=== PATIENT | male | born 1975 | race Caucasian/White ===

== ENCOUNTER 2016-08-02 16:19 | Emergency (ER) | payer OTHER ==
[~2016-08-02] VITALS: Ht 175.3 cm; Wt 118.2 kg
[2016-08-02 17:02] VITALS: BP 144/93; O2SAT 96
--- NOTE | 2016-08-02 17:47 | ED.REPORT ---
HPI-General Illness Date of Service Aug 02, 2016 ED Provider:Dr. Young Funez MD A 40 year old male presents to the ED complaining of sinus pain that began one week ago but became increasingly worse this morning. Associated symptoms include nausea, vomiting, fatigue, photophobia and nasal congestion. The pain is located in his left eye, upper dentition and forehead. He took Pseudomorphine with little relief. Patient had one previous incident of similar pain and nausea. He denies any previous facial or sinus surgeries. Nursing Notes Stated Complaint: CONGESTION, FACIAL PAIN, NAUSEA AND VOMITING Chief Complaint: ENT & Mouth Nursing Notes Reviewed: Yes Allergies: Coded Allergies: cephalexin (Verified Allergy, Severe, hives, 08/02/16) Scheduled Sulfamethoxazole/Trimeth 800-160 mg (Bactrim DS) 1 Each Tablet 1 TABLET PO BID General Time Seen by MD: 17:46 Chief Complaint Other (Facial Pain) Hx Obtained From: Patient Arrived By: Walk-in Sudden in Onset?: No Onset Occurred: 1 week ago Symptom Duration: Since onset Location: : Head Quality: Painful Radiation: : Does not radiate Severity: Current: Moderate Severity: Maximum: Moderate Associated with: Reports: Congestion, Nasal discharge, Nausea, Vomiting, Denies: Abdominal pain, Fever Pertinent Negative: Pt denies other symptoms Recent Healthcare: No recent doctor visit, No recent hospitalization Past Medical History Past Medical History None reported. Denies: Diabetes mellitus, Hypertension Past Surgical History None reported. Smoking History Never Smoker Social History Alcohol Use: Denies alcohol use Drug Use: Denies drug use Other Social History: Good social support, Local resident Ambulatory Status Independent Review of Systems Full Review of Systems Constitutional: Reports: Fatigue, Denies: Chills, Fever Ears / Nose / Throat: Reports: Nasal congestion, Sinus problem Respiratory: Denies: Shortness of breath Cardiovascular: Denies: Chest pain GI: Reports: Nausea, Vomiting, Denies: Abdominal pain Neurologic: Denies: Change LOC Complete sys rev & neg: except as marked. Physical Exam Vital Signs Vital Signs Date Time Temp Pulse Resp B/P Pulse Ox O2 Delivery O2 Flow Rate FiO2 08/02/16 17:02 36.6 101 144/93 96 Initial VS: Reviewed Neck: Supple, Non-tender, Full range of motion Extremities: Vascular intact, Neuro intact, No swelling, No tenderness Skin: Warm, Dry, No cyanosis Neurologic: Alert, Oriented, Nonfocal Psychiatric: Mood/affect normal, Behavior normal, Normal thought content General/Constitutional: Awake, Alert Head / Eyes: Atraumatic, Normocephalic, PERRL ENT: Atraumatic, Airway patent, Mucous membranes moist, Tympanic membs NL, Ext aud canal NL ENT: Frontal and left maxillary tenderness to palpation of sinuses Respiratory / Chest: Atraumatic Abdomen: Atraumatic, Soft, Non-tender Interpretation & Diagnostics CT Sinus w/o contrast Read by Radiology IMPRESSION: Pansinusitis Dictated by: Pauline Rosales MD, PhD on 08/02/2016 at 18:56 Lab Results Interpretation Result Diagram: 08/02/16 1820 08/02/16 1820 Test 08/02/16 18:20 White Blood Count 6.9th/mm3 (3.8-10.1) Red Blood Count 5.16mil/mm3 (4.40-5.80) Hemoglobin 15.2g/dL (13.8-17.2) Hematocrit 42.8% (41.0-50.0) Mean Corpuscular Volume 82.9fL (81-100) Mean Corpuscular Hemoglobin 29.5pg (27.0-35.0) Mean Corpuscular Hemoglobin Concent 35.5% (32.0-37.0) Red Cell Distribution Width 13.3% (12.3-15.4) Platelet Count 194bil/L (150-400) Neutrophils (%) (Auto) 81.2% (40-74) Lymphocytes (%) (Auto) 12.8% (14-46) Monocytes (%) (Auto) 5.1% (4-12) Eosinophils (%) (Auto) 0.3% (0-5) Basophils (%) (Auto) 0.3% (0-3) Sodium Level 138mEq/L (134-144) Potassium Level 4.5mEq/L (3.5-5.2) Chloride Level 100mEq/L (97-108) Carbon Dioxide Level 24mmol/L (18-29) Blood Urea Nitrogen 13mg/dL (6-24) Creatinine 0.95mg/dL (0.76-1.27) Estimat Glomerular Filtration Rate 92mL/min (>59) Glucose Level 112mg/dL (60-99) Calcium Level 9.7mg/dL (8.5-10.1) Re-Eval/Medical Decision Time of Eval: 18:14 Patient Status: Condition improved Re-Evaluation/Progress Note: Patient is rechecked. He is informed of his lab results, CT results and diagnosis. Time of Eval: 19:05 Patient Status: Condition improved Re-Evaluation/Progress Note: Patient's symptoms have improved. All questions are addressed. He understands and agrees with the treatment plan. Counseled Regarding: Diagnosis, Lab results, Need for follow-up, When/why to return to ED Discharge & Departure Primary Impression: Acute sinusitis Sinusitis location: unspecified location Recurrence: not specified Qualified Code: J01.90 - Acute sinusitis, unspecified Disposition: Home Discharge Condition All VS Reviewed: Yes Condition: Stable Patient Instructions: Sinusitis (ED) Additional Instructions: Thank you for trusting us with your care this evening. Your CT results reveal that you have sinusitis. I recommend you: 1. Drink plenty of fluids 2. Take an decongestant that does not contain histamine 3. Thoroughly drain your sinuses every day till symptoms are resolved. 4. Take trimethoprim sulfamethoxazole 2 times per day to completion Tylenol 1000 mg every 6 hours and/or ibuprofen 800 mg every 8 hours as needed for pain Schedule an appointment with your primary care provider in the next week days for a recheck if symptoms have not improved. Please return to the emergency department for any new or worsening symptoms. Referrals: [facility] (PCP) [facility] Scribe Attestation Portions of this note were transcribed by Vitaly Nix. I, Dr. Funez personally performed the history, physical exam and medical decision-making; I reviewed and confirmed the accuracy of the information in the transcribed note. Signed by: Leland Lee, 08/02/16 1920. Young Funez MD Aug 02, 2016 17:47 VITALY NIX Aug 02, 2016 18:15
[2016-08-02] MEDS ORDERED: 0.9% Sodium Chloride 1,000 ML IV ONE (18:11)
[2016-08-02] MEDS ORDERED: Acetaminophen IV 1,000 MG in IV Premix 1 EACH IV ONE (18:15)
[2016-08-02] MEDS ORDERED: Dexamethasone 10 mg/mL Inj IVPUSH ONE (18:15)
[2016-08-02] MEDS ORDERED: MetoCLOpramide 5 mg/mL 2 mL Inj IVPUSH ONE (18:15)
[2016-08-02 18:30] LABS: BASOPHILS % (AUTO) 0.3 % (0-3); EOSINOPHILS % (AUTO) 0.3 % (0-5); MONOCYTES % (AUTO) 5.1 % (4-12); Mean Corpuscular Hemoglobin 29.5 pg (27.0-35.0); Mean Corpuscular Volume 82.9 fL (81-100); NEUTROPHILS % (AUTO) 81.2 % (40-74); Platelet Count 194 bil/L (150-400)
--- NOTE | 2016-08-02 19:01 | DRSVH ---
PROCEDURE: CT SINUSES ([id number]) INDICATIONS: sinus pain TECHNIQUE: Noncontrast 3.0 mm axial images acquired from the frontal sinuses to the mid-sella, with coronal and sagittal reformats. COMPARISON: None. FINDINGS: Image quality: Excellent. Nasal cycle is balance at the time of image acquisition. Mild mucosal thickening noted in the maxill butch sinuses bilaterally. Mild mucosal thickening noted in the sphenoid sinuses bilaterally. Mild mu cosal thickening noted in the frontal sinuses bilaterally. Scattered opacities noted in the ethmoid air cells bilaterally. The osteomeatal units are opacified bilaterally. Nasal septum is deviated to the right. No aftab bullosa or paradoxical turbinates. Right frontal recess cell is noted. Type III cribriform plate is noted. No variants in the ethmoid roof anatomy. Type I optic nerves are note d. The inter-sphenoid sinus septum attaches to the medial wall of the left optic nerve. No air-flui d levels are identified. No bony thickening or bony remodeling. No bony erosion. IMPRESSION: Pansinusitis. Dictated by: Pauline Rosales MD, PhD on 08/02/2016 at 18:56 Approved by: Pauline Rosales MD, PhD on 08/02/2016 at 18:59
[2016-08-02] MEDS ORDERED: SULF1TAB7 PO (19:13)
[2016-08-02] MEDS ORDERED: Trimethoprim-Sulfa 160 mg-800 mg Tablet PO ONE (19:15)
[2016-08-02 19:41] VITALS: BP 131/87; PULSE 94; RESP 16; O2SAT 97
== END 2016-08-02 19:41 | disposition home or self-care (01) ==
LOC: SED 16:19
DX: J01.90 Acute sinusitis, unspecified (principal); Z88.1 Allergy status to other antibiotic agents
CPT/HCPCS: 36415; 70486; 80048; 85025; 96361; 96374; 96375; 99285; J0131; J1100; J2765; J7030